=== PATIENT | female | born 2000 | race Caucasian/White ===

== ENCOUNTER 2024-09-21 14:24 | Emergency (ER) | payer BC, SELFPAY ==
[2024-09-21 14:40] VITALS: BP 110/60; BP 132/78; PULSE 80; PULSE 83; RESP 18; TEMP 36.9; O2SAT 96; O2SAT 98; BMI 23.1
--- NOTE | 2024-09-21 15:46 | ED_ITS ---
HPI - Allergic Reaction General Chief complaint: Allergic Reaction Stated complaint: ALLERGIC RXN Time Seen by Provider: 09/21/24 14:38 Source: patient, EMS and old records reviewed Mode of arrival: EMS Limitations: no limitations History of Present Illness ED Provider: SUELLEN BAY narrative: 24 yo female healthy dx with flu on 09/03 still with cough has been taking mucinex here with c/o taking mucinex for cough last night and noting hives on the face, she then took some more today and the hives returned but no oral swelling and no diff breathing. She states they are very itchy. She has no airway issues and no hx of allergic reaction. She denies any other complaints. She did not take medications as she didn't know what to take MD complaint: allergic reaction and hives Onset (ago): day(s) (1) Exposure: medication Symptoms: rash and itching Severity: mild Treatment prior to arrival: none Previous Allergic Reaction History: none Related Data Previous Rx's ?Medication ?Instructions ?Recorded famotidine 20 mg tablet (Pepcid) 20 mg PO DAILY abdominal 09/21/24 discomfort 7 days #30 tabs loratadine 10 mg chewable tablet 10 mg PO DAILY #14 tabs 09/21/24 (Claritin) prednisone 20 mg tablet 40 mg (2 x 20 mg) PO DAILY 4 days 09/21/24 #8 tabs Allergies Allergy/AdvReac Type Severity Reaction Status Date / Time guaifenesin [From Mucinex] Allergy Intermediate Hives Verified 09/21/24 14:44 Review of Systems Review of Systems: Constitutional : No Fever, No Chills ENT/Mouth : no oral swelling, No Hoarseness, No Swallowing Difficulty Eyes: No Eye Pain, No Swelling, No Redness Cardiovascular : No Chest Pain, No SOB Respiratory : No Cough, No Sputum, No Wheezing, No Smoke Exposure, No Dyspnea Gastrointestinal : No Nausea, No Vomiting, No Diarrhea, No abdominal Pain Genitourinary : No Dysuria, No Urinary Frequency, No Hematuria Musculoskeletal : No joint pain, No Myalgias, No Joint Swelling Skin : No Skin Lesions, positive rash Neuro : No Weakness, No Numbness, No Headache All other systems reviewed and are negative PMFSH Past Medical History Attestation statement: The following information was validated with the patient. Source: old records reviewed Medical History (Updated 09/21/24 @ 15:52 by Sylvie Koroma DO) No pertinent past medical history Social History Social History (Updated 09/21/24 @ 15:52 by Sylvie Koroma DO) Patient Tobacco Use Status: Never used Tobacco Physical Exam ED Vital Signs: Vital Signs - 24 hr 09/21/24 14:40 Temperature 98.4 F Pulse Rate 83 Respiratory Rate 18 Blood Pressure 132/78 Pulse Oximetry 96 Oxygen Delivery Method Room Air BMI result Body Mass Index 23.1 Appearance: Alert. Oriented X3. No acute distress. Eyes: Pupils equal, round and reactive to light. ENT: Pharynx normal. no swelling, she has normal voice no stridor, on chin and L eyebrow there are small hives and also what appears to be tiny clear fluid filled blisters on chin not the lip line - she states they are itchy and her forehead is itchy Neck: Normal inspection. Neck supple. CVS: Normal heart rate and rhythm. Pulses normal. Respiratory: No respiratory distress. Breath sounds normal. Abdomen: Soft and nontender. Skin: Skin warm and dry. Normal skin color. Normal skin turgor. Extremities: No lower extremity edema. No calf ttp Neuro: Oriented X 3. No motor deficit. No sensory deficit. CN2-12 intact Medical Decision Making Medical Decision Making MDM Narrative: 24 yo female with no sig PMH here with c/o hives on face on and off since taking mucinex at this time no resp issues will need prednisone, pepcid, claritin no resp issues and no progression she is stable for outpatient management Differential Diagnosis Differential Diagnoses: The differential diagnosis associated with the presentation includes hives, allergy Independent Historian Clinical information obtained from an independent historian. History obtained from or confirmed by: EMS Prescription Management I considered prescription management with: Other Discharge Plan Discharge Clinical Impression: Allergic reaction Qualifiers: Encounter type: initial encounter Qualified Code(s): T78.40XA - Allergy, unspecified, initial encounter Patient Disposition: Home, Self-Care Instructions: General Allergic Reaction (ED) Additional Instructions: STOP TAKING MUCINEX take the medications as prescribed next dose tomorrow return for any worsening symptoms or concerns such as increased swelling, difficulty breathing, difficulty swallowing or any other concerns. Prescriptions: New prednisone 20 mg tablet 40 mg PO DAILY 4 Days Qty: 8 0RF famotidine [Pepcid] 20 mg tablet 20 mg PO DAILY 7 Days Qty: 30 0RF Claritin 10 mg tablet,chewable 10 mg PO DAILY Qty: 14 0RF Stand Alone Forms: Work/School Release Print Language: Bengali
[2024-09-21] MEDS: Loratadine 10 MG TABLET PO (15:51)
[2024-09-21] MEDS: Famotidine 20 MG TABLET PO (15:51)
[2024-09-21] MEDS: predniSONE 20 MG TABLET 40 MG PO (15:51)
[2024-09-21 16:34] VITALS: BP 132/78; PULSE 83; RESP 18; TEMP 36.9; O2SAT 96
== END 2024-09-21 16:34 | disposition home or self-care (01) ==
PROVIDERS: Emergency Provider Emergency Medicine
DX: T78.40XA Allergy, unspecified, initial encounter (principal); L50.9 Urticaria, unspecified; X58.XXXA Exposure to other specified factors, initial encounter
CPT/HCPCS: 99282; 99283